=== PATIENT | male | born 1930 | race Caucasian/White ===

== ENCOUNTER 2016-06-09 13:04 | Inpatient (IN) | payer OTHER, MEDICARE ==
[~2016-06-09] VITALS: Ht 170.2 cm; Wt 98.0 kg
--- NOTE | 2016-06-09 13:04 | NUR ---
bb self for dizziness and nausea since this am ~1000. nad noted. pt aao x4, ambulatory with steady gait. rr even and unlabored. vss. pt placed in gown and monitor. md at bedside for eval.
[2016-06-09] MEDS ORDERED: IV SET PRIMARY 1 EA INFUS.SET MC ONE (13:47)
[2016-06-09] MEDS ORDERED: IV NS 0.9% 500 ML IV ONE (13:47)
[2016-06-09 13:54] LABS: EOSINOPHILS # (AUTO) 0.1 /CMM (0.0-0.7); EOSINOPHILS % (AUTO) 0.9 % (0.0-6.0); HEMATOCRIT 40 % (39-51); HEMOGLOBIN 13.3 g/dL (13.5-17.5); LYMPHOCYTES # (AUTO) 0.9 /CMM (0.8-4.8); LYMPHOCYTES % (AUTO) 8.7 % (20.0-44.0); MEAN CORPUSCULAR HEMOGLOBIN 31 PG (26.0-33.0); MEAN CORPUSCULAR HGB CONC 33 g/dl (31.0-36.0); MEAN CORPUSCULAR VOLUME 93 fL (80-96); MONOCYTES # (AUTO) 0.4 /CMM (0.1-1.30); MONOCYTES % (AUTO) 3.7 % (2.0-12.0); NEUTROPHILS # (AUTO) 9.1 /CMM (1.8-8.9); NEUTROPHILS % (AUTO) 86.7 % (43.0-81.0); PLATELET COUNT (AUTO) 229 /CMM (150-450); RDW COEFFICIENT OF VARIATION 13.4 (11.5-15.0); RED BLOOD CELL COUNT(AUTO) 4.27 MIL/uL (4.5-6.0); WHITE BLOOD COUNT (AUTO) 10.4 K/uL (4.3-11.0)
[2016-06-09] MEDS ORDERED: IV NS 0.9% 500 ML BAG IV ONE (14:00)
[2016-06-09 14:06] LABS: CALCIUM, SERUM 8.8 mg/dL (8.5-10.1); CARBON DIOXIDE 31 mmol/L (21-32); CHLORIDE 106 mmol/L (98-107); CREATININE 1.2 mg/dL (0.6-1.3); GLUCOSE 160 mg/dL (74-106); SODIUM SERUM 142 mmol/L (136-145); UREA NITROGEN, BLOOD 17 mg/dL (7-18)
[2016-06-09 14:12] LABS: ALANINE AMINOTRANSFERASE 43 U/L (12-78); ALBUMIN 3.7 g/dL (3.4-5.0); ALKALINE PHOSPHATASE 84 U/L (46-116); ASPARTATE AMINOTRANSFERASE 19 U/L (15-37); BILIRUBIN,DIRECT 0.1 mg/dL (0.0-0.2); BILIRUBIN,TOTAL 0.6 mg/dL (0.2-1.0); TOTAL PROTEIN, SERUM 7.9 g/dL (6.4-8.2)
[2016-06-09 14:13] LABS: TROPONIN I < 0.017 ng/mL (0.00-0.056)
[2016-06-09 14:24] LABS: INR 0.97 (0.87-1.13); PROTHROMBIN TIME 10.4 SECS (9.5-12.7)
[2016-06-09] MEDS ORDERED: MECLIZINE HCL 25 MG TABLET ONE (14:38)
[2016-06-09] MEDS ORDERED: METOCLOPRAMIDE HCL 10 MG/2 ML VIAL ONE (14:38)
[2016-06-09] MEDS ORDERED: METOCLOPRAMIDE HCL 10 MG/2 ML VIAL IV ONE (15:00)
[2016-06-09] MEDS ORDERED: MECLIZINE HCL 25 MG TABLET PO ONE (15:00)
[2016-06-09] MEDS ORDERED: diphenhydrAMINE HCL 50 MG/ML VIAL ONE (15:29)
[2016-06-09] MEDS ORDERED: diphenhydrAMINE HCL 50 MG/ML VIAL IV ONE (15:30)
--- NOTE | 2016-06-09 16:05 | NUR ---
report given to peng villatoro for favian
[2016-06-09] MEDS ORDERED: IV NS 0.9% 1,000 ML IV PRN (16:17)
[2016-06-09] MEDS ORDERED: MAGNESIUM HYDROXIDE 30 ML UDC PO PRN (16:30)
[2016-06-09] MEDS ORDERED: Z GUARD REMEDY 2 OZ OINT TP PRN (16:30)
[2016-06-09] MEDS ORDERED: ACETAMINOPHEN 325 MG TABLET PO PRN (16:30)
[2016-06-09] MEDS ORDERED: ONDANSETRON HCL/PF 4 MG/2 ML VIAL IVP PRN (16:30)
[2016-06-09] MEDS ORDERED: MAG HYDROX/AL HYDROX/SIMETH 30 ML UDC PO PRN (16:30)
[2016-06-09] MEDS ORDERED: HYDROCODONE/APAP 5/325MG 1 EACH TABLET PO PRN (16:30)
[2016-06-09] MEDS ORDERED: ZOLPIDEM TARTRATE 5 MG TABLET PO PRN (16:30)
--- NOTE | 2016-06-09 16:45 | NUR ---
SIX SIGMA PROJECT MANAGER NOTE Received patient from ER via gurney as accompanied by ER staff and family (, daughter) at bedside. Pt A/O X3 verbally responsive. Denies any pain at this time but still c/o feeling slight dizzy at times. No SOB noted resp even and non-labored. Skin warm and dry to touch. On tele monitor SR 80's. Bed in low locked position. Will continue to monitor. IV site intact and patent.
[2016-06-09] MEDS ORDERED: ENOXAPARIN SODIUM 40 MG/0.4 ML DISP.SYRIN SQ SCH (17:00)
[2016-06-09] MEDS ORDERED: TAMS0.4C34 PO (17:21)
[2016-06-09] MEDS ORDERED: LINA5TAB PO (17:21)
[2016-06-09] MEDS ORDERED: LEVO100T9 PO (17:21)
[2016-06-09] MEDS ORDERED: ASPI81TA2 PO (17:21)
[2016-06-09] MEDS ORDERED: PANT40TA2 PO (17:21)
[2016-06-09] MEDS ORDERED: CLOP75TA2 PO (17:21)
[2016-06-09] MEDS ORDERED: DULO60CA45 PO (17:21)
[2016-06-09] MEDS ORDERED: CELE200C PO (17:21)
[2016-06-09] MEDS ORDERED: VIT1CAPS44 PO (17:21)
[2016-06-09] MEDS ORDERED: ATOR10TA PO (17:21)
[2016-06-09] MEDS ORDERED: TEMA15CA PO (17:21)
[2016-06-09] MEDS ORDERED: IV SET PRIMARY PUMP SET 1 EA INFUS.SET MC ONE (17:57)
[2016-06-09] MEDS: PANTOPRAZOLE 40 MG TABLET.DR PO SCH (18:01)
--- NOTE | 2016-06-09 18:15 | NUR ---
BALANCE RECESSER NOTE Patient ate dinner, seen and assessed by Dr. Zapata and family at bedside. Denies any discomfort at this time. Continue on IV hydration as ordered. Will endorse care to next shift.
[2016-06-09 19:00] VITALS: BP 126/72
--- NOTE | 2016-06-09 19:35 | NUR ---
RN OPENING NOTES RECEIVED REPORT FROM ROBERT RNKAITLYNN. FOUND Pt AWAKE IN BED, WATCHING TV. Pt IS A/OX4, VERBAL, ABLE TO MAKE NEEDS KNOWN. NO S/S OF ACUTE DISTRESS OR SOB NOTED. Pt DENIES ANY PAIN AT THIS TIME, ALSO DENIES ANY N/V WELL. IV ACCESS ON LAC #20G, IVF NS @75ML/HR. ON TELE SR 70's. SAFETY MEASURES IN PLACE. BED LOW, LOCKED, HOB ELEVATED, SIDE RAILS UP, CALL LIGHT WITHIN REACH. WILL CONTINUE TO MONITOR Pt THROUGHOUT THE NIGHT FOR SAFETY.
[2016-06-09 20:00] VITALS: BP 126/72
[2016-06-10] VITALS: BP 137/77
[2016-06-10 04:00] VITALS: BP 131/77
--- NOTE | 2016-06-10 06:56 | NUR ---
RN CLOSING NOTES NO SIGNIFICANT CHANGES NOTED DURING THE SHIFT. NO S/S OF ACUTE DISTRESS OR SOB NOTED. ALL NEEDS MET AND ATTENDED TO. SAFETY MEASURES IN PLACE. TELE READING SR 64. WILL ENDORSE TO DAYSHIFT RN FOR Pt's STEPHANI & SAFETY.
--- NOTE | 2016-06-10 07:51 | NUR ---
PENSION EXAMINER OPENING NOTE PATIENT IS ALERT AND ORIENTED x4. NO PAIN AT THIS TIME. NO SOB OR DISTRESS NOTED. CALL LIGHT WITHIN REACH. SAFETY MEASURES IMPLEMENTED. IV INTACT AND PATENT NO REDNESS OR SWELLING NOTED. PATIENT ABLE TO COMMUNICATE NEEDS. WILL CONTINUE TO MONITOR Addendum: 06/10/16 at 1709 by LOURDES TRAMMELL RN PATIENT IS AMBULATORY WITH STANDBY ASSISTANCE. REPORTS NO EPISODES OF DIZZINESS.
[2016-06-10 08:00] VITALS: BP 135/75
[2016-06-10 08:14] LABS: BASOPHILS % (AUTO) 0.3 % (0.0-2.0); EOSINOPHILS # (AUTO) 0.2 /CMM (0.0-0.7); EOSINOPHILS % (AUTO) 2.6 % (0.0-6.0); HEMATOCRIT 37 % (39-51); HEMOGLOBIN 12.4 g/dL (13.5-17.5); LYMPHOCYTES # (AUTO) 1.6 /CMM (0.8-4.8); LYMPHOCYTES % (AUTO) 25.3 % (20.0-44.0); MEAN CORPUSCULAR HEMOGLOBIN 31 PG (26.0-33.0); MEAN CORPUSCULAR HGB CONC 34 g/dl (31.0-36.0); MEAN CORPUSCULAR VOLUME 93 fL (80-96); MONOCYTES # (AUTO) 0.6 /CMM (0.1-1.30); MONOCYTES % (AUTO) 9.4 % (2.0-12.0); NEUTROPHILS % (AUTO) 62.4 % (43.0-81.0); PLATELET COUNT (AUTO) 198 /CMM (150-450); RDW COEFFICIENT OF VARIATION 13.3 (11.5-15.0); RED BLOOD CELL COUNT(AUTO) 3.95 MIL/uL (4.5-6.0); WHITE BLOOD COUNT (AUTO) 6.5 K/uL (4.3-11.0)
[2016-06-10 08:21] LABS: ALBUMIN 3.3 g/dL (3.4-5.0); BILIRUBIN,TOTAL 0.5 mg/dL (0.2-1.0); CALCIUM, SERUM 8.4 mg/dL (8.5-10.1); CREATININE 1.1 mg/dL (0.6-1.3); PHOSPHORUS 3.6 mg/dL (2.5-4.9); TOTAL PROTEIN, SERUM 7.1 g/dL (6.4-8.2)
[2016-06-10] MEDS: PANTOPRAZOLE 40 MG TABLET.DR PO SCH (08:41)
--- NOTE | 2016-06-10 11:45 | NUR ---
INSIDE SALES ACCOUNT MANAGER NOTE PATIENT IS HEADING DOWN TO MRI. NO COMPLAINTS OF DIZZINESS PRESENT. VITALS ARE STABLE. PATIENT IS STABLE AT THIS TIME. NO PAIN, SOB OR DISTRESS NOTED. MRI CHECKLIST COMPLETED.
--- NOTE | 2016-06-10 12:10 | NUR ---
CREDIT REPORTER NOTE PATIENT IS BACK FROM MRI. PATIENT IS STABLE NO COMPLAINTS OF DIZZINESS AT THIS TIME. NO SOB OR DISTRESS NOTED. WILL CONTINUE TO MONITOR
--- NOTE | 2016-06-10 15:38 | NUR ---
NEON SIGN ERECTOR DSICHARGE NOTE PATIENT IS ALERT AND ORIENTED x4. NO PAIN AT THIS TIME. NO SOB OR DISTRESS NOTED. ALL DUE MEDICATION GIVEN ORDERED. CALL LIGHT WITHIN REACH AT ALL TIMES. SAFETY MEASURES IMPLEMENTED. DISCHARGE INSTRUCTIONS GIVEN TO PATIENT AND DAUGHTER-STEFANY. ALL BELONGINGS WITH PATIENT AND DAUGHTER. LEAVING PRIVATE CAR.
== END 2016-06-10 15:22 | disposition home or self-care (01) | DRG 149 ==
LOC: ER 13:07 → TELE 16:09
PROVIDERS: ADMIT Internal Medicine; ATTEND Internal Medicine
DX: H81.399 Other peripheral vertigo, unspecified ear (principal); D64.9 Anemia, unspecified; E78.00 Pure hypercholesterolemia, unspecified; E78.5 Hyperlipidemia, unspecified; I10 Essential (primary) hypertension; Z86.73 Personal history of transient ischemic attack (TIA), and cerebral infarction without residual deficits; K21.9 Gastro-esophageal reflux disease without esophagitis
CPT/HCPCS: 36415; 70450-TC; 70551-TC; 71010-TC; 80048-TC; 80053-TC; 80061-TC; 80076-TC; 83605-TC; 83735-TC; 84100-TC; 84484-TC; 85025-TC; 85730-TC; 87040-TC; 87081-TC; 93307-TC; 93880-TC; 97001-TC; A4606; J1200; J1650; J2765; J7030; J7040; J8597; Z7610